=== PATIENT | female | born 1930 | race Caucasian/White ===

== ENCOUNTER 2017-04-14 17:11 | Emergency (ER) | payer MEDICARE, OTHER ==
[2017-04-14 18:06] VITALS: BP 114/78
[2017-04-14 18:43] LABS: CHLORIDE,CL 101 mmol/L (98-107); SODIUM,NA 137 mmol/L (136-145)
[2017-04-14] MEDS ORDERED: Sulfamethoxazole/Trimethoprim 800-160 MG Tab PO ONE (19:13)
[2017-04-14] MEDS ORDERED: cefTRIAXone 1 GM Vial IM ONE (19:13)
[2017-04-14] MEDS ORDERED: cefTRIAXone 1 GM, Lidocaine 1% 2.1 ML IM ONE ×2 (19:14)
--- NOTE | 2017-04-14 19:25 | EDM.PDOC ---
ED HPI GENERAL MEDICAL PROBLEM - General Chief Complaint: General Stated Complaint: CHILLS,FEVER Time Seen by Provider: 04/14/17 17:16 Source of Information: Reports: EMS, [facility] Records History Limitations: Reports: Altered Mental Status - History of Present Illness INITIAL COMMENTS - FREE TEXT/NARRATIVE: Patient is unable to provide an accurate history due to confusion and being hard of hearing. She is brought here with chills and fever. Upon arrival has fever of 100.4 F. [facility] did send at the request of [facility] utility worker production physician Dr. Marah Anaya. Medical history includes' HTN, hyperlipidemia, anxiety, constipation, diverticulitis, depression, actinic keratosis, osteoporosis, alzheimer's, dementia. Onset: Today, Sudden Duration: Getting Worse Associated Symptoms: Reports: Fever/Chills - Related Data Allergies Allergy/AdvReac Type Severity Reaction Status Date / Time atorvastatin [From Lipitor] Allergy Cannot Verified 04/14/17 18:15 Remember sertraline [From Zoloft] Allergy Cannot Verified 04/14/17 18:15 Remember simvastatin [From Zocor] Allergy Cannot Verified 04/14/17 18:15 Remember Home Meds: Home Meds ALPRAZolam [Alprazolam] 0.25 mg PO QID 10/27/16 [History] Donepezil [Aricept] 10 mg PO BEDTIME 10/27/16 [History] Glucosamine Sulf/Chondroitin A [Glucosamine-Chondroitin Cap] 1 cap PO DAILY 01/07 [History] Lisinopril 20 mg PO DAILY 10/27/16 [History] Triamterene/Hydrochlorothiazid [Triamterene-HCTZ 75-50 MG] 0.5 tab PO DAILY 01/07 [History] ALPRAZolam [Xanax] 0.25 mg PO BID PRN 04/14/17 [History] Acetaminophen [Acetaminophen 8 Hour] 650 mg PO Q4H PRN 04/14/17 [History] Aspirin/Acetaminophen/Caffeine [Extraprin Tablet] 2 tab PO DAILY 04/14/17 [ History] Bisacodyl [Dulcolax] 5 mg PO DAILY PRN 04/14/17 [History] Calcium Carb & Citrate/Vit D3 [Citracal + D ER] 2 tab PO BID 04/14/17 [History] Calcium Carbonate [Tums] 2 tab PO Q6H PRN 04/14/17 [History] Carboxymethyl/Gly/Poly80/Pf [Refresh Optive Advanced Drops] 1 each OP QID [History] Cholecalciferol (Vitamin D3) [Vitamin D3] 2,000 unit PO DAILY 04/14/17 [History] Loperamide HCl [Imodium A-D] 2 mg PO ASDIRECTED PRN 04/14/17 [History] Meclizine HCl 12.5 mg PO Q4H PRN 04/14/17 [History] Multivitamin [Multivitamins] 1 each PO DAILY 04/14/17 [History] Naphazo HCl/HPM/PS 80/Zn Sulf [Clear Eyes Complete Eye Drops] 1 drop EYEBOTH BID 04/14/17 [History] Nystatin [Nystatin Crm] 1 applic TOP TID PRN 04/14/17 [History] Ondansetron [Zofran] 4 mg PO Q4H PRN 04/14/17 [History] Psyllium Husk/Aspartame [Cora-Mucil Powder] 1 tbs PO DAILY 04/14/17 [History] Ranitidine HCl 150 mg PO BID 04/14/17 [History] Saliva Stimulant Comb. No.3 [Biotene Moisturizing Mouth] 1 spray PO BID [History] Simethicone 80 mg PO Q4H PRN 04/14/17 [History] Venlafaxine [Effexor XR 24 Hr] 75 mg PO DAILY 04/14/17 [History] Zinc Oxide [Desitin] 1 applic TP DAILY PRN 04/14/17 [History] risperiDONE [Risperdal] 0.5 mg PO BID 04/14/17 [History] Past Medical History Cardiovascular History: Reports: High Cholesterol, Hypertension Gastrointestinal History: Reports: Chronic Constipation, Diverticulosis, Other ( See Below) Other Gastrointestinal History: diverticulitis, epigastric pain, Other OB/BYN History: Hysterectomy Musculoskeletal History: Reports: Osteoporosis Neurological History: Reports: Other (See Below) Other Neuro History: fatigue Psychiatric History: Reports: Alzheimers Disease, Anxiety, Dementia Endocrine/Metabolic History: Reports: Other (See Below) Other Endocrine/Metabolic History: hypercalcemia Dermatologic History: Reports: Other (See Below) Other Dermatologic History: actinic keratosis Social & Family History - Tobacco Use Smoking Status *Q: Former Smoker Used Tobacco, but Quit: Yes Month Tobacco Last Used: 1980s - Recreational Drug Use Recreational Drug Use: No ED ROS GENERAL - Review of Systems Review Of Systems: Unable To Obtain (patient unable to provide accurate history) ED EXAM, GENERAL - Physical Exam Exam: See Below Exam Limited By: Altered Mental Status General Appearance: Alert, WD/WN, No Apparent Distress Eye Exam: Bilateral Eye: EOMI, PERRL Ears: Normal TMs, Hearing Loss Throat/Mouth: Normal Inspection, Normal Oropharynx Head: Atraumatic, Normocephalic Neck: Normal Inspection, Supple Respiratory/Chest: No Respiratory Distress, Lungs Clear, Normal Breath Sounds, No Accessory Muscle Use, Chest Non-Tender Cardiovascular: Normal Peripheral Pulses, Regular Rate, Rhythm, No Edema, No Gallop, No Murmur GI/Abdominal: Normal Bowel Sounds, Soft, Non-Tender, No Organomegaly Back Exam: Normal Inspection Extremities: Normal Inspection, Normal Range of Motion, Non-Tender, No Pedal Edema, Normal Capillary Refill Neurological: Alert, Oriented, CN II-XII Intact, Normal Cognition, Normal Gait, Normal Reflexes, No Motor/Sensory Deficits Psychiatric: Normal Affect, Normal Mood Skin Exam: Warm, Dry, Intact, Normal Color Lymphatic: No Adenopathy Course - Vital Signs Last Recorded V/S: Last Vital Signs Temp 38.1 C 04/14/17 17:15 Pulse 127 H 04/14/17 17:15 Resp 22 H 04/14/17 17:15 BP 114/78 04/14/17 17:15 Pulse Ox 95 04/14/17 17:15 - Orders/Labs/Meds Orders: Active Orders 24 hr Category Date Time Status EKG Documentation Completion [RC] STAT Care 04/14/17 17:22 Active Chest 1V Frontal [CR] Stat Exams 04/14/17 17:22 Taken C-REACTIVE PROTEIN [CHEM] Stat Lab 04/14/17 17:53 Results CK W CKMB [CHEM] Stat Lab 04/14/17 17:53 Results COMPREHENSIVE METABOLIC PN,CMP [CHEM] Stat Lab 04/14/17 17:53 Results CULTURE BLOOD [BC] Stat Lab 04/14/17 17:53 Results CULTURE BLOOD [BC] Stat Lab 04/14/17 17:59 Received LACTIC ACID [CHEM] Stat Lab 04/14/17 17:53 Received TROPONIN I [CHEM] Stat Lab 04/14/17 17:53 Results Blood Culture x2 Reflex Set [OM.PC] Stat Oth 04/14/17 17:22 Ordered Labs: Laboratory Tests 04/14/17 04/14/17 04/14/17 Range/Units 17:35 17:53 17:53 WBC 9.1 (4.0-10.0) x10^3/uL RBC 4.35 (4.00-5.50) x10^6/uL Hgb 13.0 (12.0-16.0) g/dL Hct 38.5 (33.0-47.0) % MCV 88.5 (78.0-93.0) fL MCH 29.9 (26.0-32.0) pg MCHC 33.8 (32.0-36.0) g/dL RDW Coeff of Zohra 13.5 (10.0-15.0) % Plt Count 201 (130-400) x10^3/uL Add Manual Diff Yes Neutrophils % (Manual) 95 H (50-80) % Band Neutrophils % 3 (0-6) % Lymphocytes % (Manual) 1 L (25-50) % Monocytes % (Manual) 1 L (2-11) % Toxic Granulation Rare Platelet Estimate Adequate Sodium 137 (136-145) mmol/L Potassium 3.1 L (3.5-5.1) mmol/L Chloride 101 (98-107) mmol/L Carbon Dioxide 29 (21-32) mmol/L BUN 12 (7-18) mg/dL Creatinine 1.1 H (0.55-1.02) mg/dL Est Cr Clr Drug Dosing 27.19 mL/min Estimated GFR (MDRD) 47 Glucose 90 (74-106) mg/dL Calcium 10.0 (8.5-10.1) mg/dL Corrected Calcium 10.88 H (8.5-10.1) mg/dL Total Bilirubin 0.6 (0.2-1.0) mg/dL AST 17 (15-37) U/L ALT 18 (14-59) U/L Alkaline Phosphatase 101 (46-116) U/L Creatine Kinase 37 (26-192) U/L Creatine Kinase Index TNP CK-MB (CK-2) TNP Troponin I < 0.017 (<=0.056) ng/mL Total Protein 6.9 (6.4-8.2) g/dL Albumin 2.9 L (3.4-5.0) g/dL Globulin 4.0 Albumin/Globulin Ratio 0.73 Urine Color Dark yellow H (YELLOW) Urine Appearance Slightly cloudy H (CLEAR) Urine pH 7.0 (5.0-8.0) Ur Specific Burna 1.015 Urine Protein Negative (NEGATIVE) mg/dL Urine Glucose (UA) Negative (NEGATIVE) mg/dL Urine Ketones Negative (NEGATIVE) mg/dL Urine Occult Blood Negative (NEGATIVE) Urine Nitrite Negative (NEGATIVE) Urine Bilirubin Negative (NEGATIVE) Urine Urobilinogen 0.2 (0.2) EU/dL Ur Leukocyte Esterase Small H (NEGATIVE) Urine RBC 0-5 (NOT SEEN) /HPF Urine WBC 5-10 H (NOT SEEN) /HPF Ur Squamous Epith Cells Rare (NEGATIVE) /HPF Urine Bacteria Rare (NEGATIVE) /HPF Urine Mucus Not seen (NEGATIVE) /LPF Departure - Departure Time of Disposition: 19:45 Disposition: Home, Self-Care 01 Condition: Good Clinical Impression: UTI, Urinary tract infectious disease - Discharge Information Instructions: Urinary Tract Infection, Adult, [id number] Forms: ED Department Discharge Additional Instructions: Take the full course of bactrim. You have a questionable UTI starting. We will be culturing your urine to determine whether and what type of bacteria is present. Return to the ED if you have any increased fever, confusion, weakness Follow up with Dr. Epps as needed for symptom management Please call with any questions or concerns. - Problem List & Annotations (1) UTI, Urinary tract infectious disease SNOMED Code(s): 32742890 Code(s): N39.0 - URINARY TRACT INFECTION, SITE NOT SPECIFIED Status: Acute Priority: Low Current Visit: Yes - Problem List Review Problem List Initiated/Reviewed/Updated: Yes - My Orders Last 24 Hours: My Active Orders 04/14/17 17:22 EKG Documentation Completion [RC] STAT Chest 1V Frontal [CR] Stat Blood Culture x2 Reflex Set [OM.PC] Stat 04/14/17 17:53 C-REACTIVE PROTEIN [CHEM] Stat CK W CKMB [CHEM] Stat COMPREHENSIVE METABOLIC PN,CMP [CHEM] Stat CULTURE BLOOD [BC] Stat LACTIC ACID [CHEM] Stat TROPONIN I [CHEM] Stat 04/14/17 17:59 CULTURE BLOOD [BC] Stat - Assessment/Plan Last 24 Hours: My Active Orders 04/14/17 17:22 EKG Documentation Completion [RC] STAT Chest 1V Frontal [CR] Stat Blood Culture x2 Reflex Set [OM.PC] Stat 04/14/17 17:53 C-REACTIVE PROTEIN [CHEM] Stat CK W CKMB [CHEM] Stat COMPREHENSIVE METABOLIC PN,CMP [CHEM] Stat CULTURE BLOOD [BC] Stat LACTIC ACID [CHEM] Stat TROPONIN I [CHEM] Stat 04/14/17 17:59 CULTURE BLOOD [BC] Stat Assessment:: UTI Plan: Take the full course of bactrim. You have a questionable UTI starting. We will be culturing your urine to determine whether and what type of bacteria is present. Return to the ED if you have any increased fever, confusion, weakness Follow up with Dr. Epps as needed for symptom management Please call with any questions or concerns.
[2017-04-14] MEDS ORDERED: cefTRIAXone 1 GM Vial IVPUSH ONE (19:41)
== END 2017-04-14 19:48 | disposition home or self-care (01) ==
LOC: VM.ED 17:11
DX: N39.0 Urinary tract infection, site not specified (principal); E78.00 Pure hypercholesterolemia, unspecified; I10 Essential (primary) hypertension; F41.9 Anxiety disorder, unspecified; Z88.8 Allergy status to other drugs, medicaments and biological substances; Z87.891 Personal history of nicotine dependence; Z79.82 Long term (current) use of aspirin; Z79.899 Other long term (current) drug therapy; Z90.710 Acquired absence of both cervix and uterus
CPT/HCPCS: 36415; 71010; 80053; 81001; 82550; 83605; 84484; 85025; 86140; 87040; 87075; 87086; 93005; 96374; 99283; 99285; A9270; J0696; 87076; 87153; 87186